=== PATIENT | female | born 1930 | race Caucasian/White ===

== ENCOUNTER → 2016-08-20 | Outpatient (CLI) | payer OTHER | LOC: FIMAGING 15:55 | DX: Z12.31 Encounter for screening mammogram for malignant neoplasm of breast (principal); Z85.3 Personal history of malignant neoplasm of breast | CPT/HCPCS: G0202 ==

== ENCOUNTER 2017-04-07 11:31 | Observation (INO) | payer OTHER ==
--- NOTE | 2017-04-07 11:41 | EDPHY ---
H & P Time Seen by Provider: 04/07/17 11:40 HPI/ROS: CHIEF COMPLAINT: Cough, dyspnea HISTORY OF PRESENT ILLNESS: The patient presents to the ED with worsening cough and dyspnea for the past 24 hours. The patient did notice a sore throat and some nasal congestion over the past several days. The patient denies subjective fever. She did receive a influenza vaccination this year. The patient has a remote history of childhood asthma but no history of pulmonary disease as an adult. She denies any asymmetric calf pain or swelling. She denies pleuritic chest pain. The patient reports moderate dyspnea which is worsened with exertion. REVIEW OF SYSTEMS: A comprehensive 10 point review of systems is otherwise negative aside from elements mentioned in the history of present illness. Source: Patient Exam Limitations: No limitations - Medical/Surgical History PMH: Past medical history: Childhood asthma, hyperlipidemia - Family History Significant Family History: No pertinent family hx - Social History Smoking Status: Never smoked - Physical Exam Exam: General Appearance: Thin female, mild tachypnea Eyes: Pupils equal and round no pallor or injection ENT, Mouth: Mild pharyngeal erythema Respiratory: Diffuse expiratory wheezing, mild tachypnea, decreased breath sounds bilaterally Cardiovascular: Regular rate and rhythm Gastrointestinal: Abdomen is soft and nontender, no masses, bowel sounds normal Neurological: A&O, normal motor function, normal sensory exam, normal cranial nerves Skin: Warm and dry, no rashes Musculoskeletal: Neck is supple nontender Extremities: symmetrical, full range of motion, no edema Constitutional: Initial Vital Signs Temperature (C) 37 C 04/07/17 11:40 Heart Rate 92 04/07/17 11:40 Respiratory Rate 22 H 04/07/17 11:40 Blood Pressure 129/91 H 04/07/17 11:40 O2 Sat (%) 80 L 04/07/17 11:40 O2 Delivery Mode Room Air O2 (L/minute) 5 Allergies/Adverse Reactions: No Known Allergies Allergy (Unverified 04/07/17 11:40) Home Medications: Medication Instructions Recorded Nexium 04/07/17 Medical Decision Making - Diagnostics EKG Interpretation: EKG: Complete interpretation has been separately recorded in the [facility] archive. Summary impression: Sinus rhythm, rate 84, nonspecific T-wave changes noted Imaging Results: Imaging Impressions Chest X-Ray 04/07/17 11:46 Impression: 1. Large retrocardiac hiatal hernia, similar to 10/03/2008. 2. Mild central perihilar bronchial wall thickening, with no new convincing focal infiltrate. If there is further clinical concern regarding the patient's symptoms, contrast- enhanced CT imaging could be considered. ED Course/Re-evaluation: The patient presents to the ED with acute cough and wheezing. The patient was noted to be hypoxemic upon arrival. The patient received supplemental oxygen was placed on a playground monitor. She received a DuoNeb. The patient did correct with 4 L/minute of nasal cannula oxygen. The patient was taken for a chest x-ray which demonstrates no evidence of an obvious pneumonia. I re-evaluated the patient at 1:30 p.m.. She continues to be mildly hypoxemic. An additional 2 albuterol nebulizers have been ordered and 60 mg of oral prednisone was given. The patient's influenza PCR test is negative. I re-evaluated the patient at 2:30 p.m.. Her room air oxygen saturation is still 82%. She is currently correcting on 2 L of nasal cannula O2 per minute. The patient [place] alone [place]. Given her acute hypoxemia I do feel she should be admitted to the hospital for observation this evening. Consultation was made with Dr. Ro from the hospitalist service at 2:30 p.m. who will admit the patient. Differential Diagnosis: Differential diagnosis considered includes fracture, sprain, dislocation - Data Points Laboratory Results: Laboratory Results 04/07/17 11:42 04/07/17 11:42 04/07/17 04/07/17 04/07/17 11:55 11:42 11:42 WBC 10.33 10^3/uL H 10^3/uL (3.80-9.50) RBC 4.82 10^6/uL 10^6/uL (4.18-5.33) Hgb 14.0 g/dL g/dL (12.6-16.3) Hct 41.3 % % (38.0-47.0) MCV 85.7 fL fL (81.5-99.8) MCH 29.0 pg pg (27.9-34.1) MCHC 33.9 g/dL g/dL (32.4-36.7) RDW 15.1 % % (11.5-15.2) Plt Count 188 10^3/uL 10^3/uL (150-400) MPV 11.7 fL fL (8.7-11.7) Neut % (Auto) 84.9 % H % (39.3-74.2) Lymph % (Auto) 7.8 % L % (15.0-45.0) [place] % (Auto) 5.6 % % (4.5-13.0) Eos % (Auto) 1.0 % % (0.6-7.6) Baso % (Auto) 0.5 % % (0.3-1.7) Nucleat RBC Rel Count 0.0 % % (0.0-0.2) Absolute Neuts (auto) 8.77 10^3/uL H 10^3/uL (1.70-6.50) Absolute Lymphs (auto) 0.81 10^3/uL L 10^3/uL (1.00-3.00) Absolute Monos (auto) 0.58 10^3/uL 10^3/uL (0.30-0.80) Absolute Eos (auto) 0.10 10^3/uL 10^3/uL (0.03-0.40) Absolute Basos (auto) 0.05 10^3/uL 10^3/uL (0.02-0.10) Absolute Nucleated RBC 0.00 10^3/uL 10^3/uL (0-0.01) Immature Gran % 0.2 % % (0.0-1.1) Immature Gran # 0.02 10^3/uL 10^3/uL (0.00-0.10) Sodium 139 mEq/L mEq/L (134-144) Potassium 4.3 mEq/L mEq/L (3.5-5.2) Chloride 104 mEq/L mEq/L (97-110) Carbon Dioxide 23 mEq/l mEq/l (22-31) Anion Gap 12 mEq/L mEq/L (8-16) BUN 10 mg/dL mg/dL (7-23) Creatinine 0.7 mg/dL mg/dL (0.6-1.0) Estimated GFR > 60 Glucose 106 mg/dL H mg/dL (70-100) Calcium 9.3 mg/dL mg/dL (8.5-10.4) Nasal Influenza A PCR NEGATIVE FOR FLU A (NEGATIVE) Nasal Influenza B PCR NEGATIVE FOR FLU B (NEGATIVE) Medications Given: Discontinued Medications Albuterol (Proventil Neb) 3 ml IH EDNOW ONE Stop: 04/07/17 13:26 Last Admin: 04/07/17 13:28 Dose: 3 ml Albuterol/Ipratropium (Duoneb) 3 ml IH EDNOW ONE Stop: 04/07/17 11:54 Last Admin: 04/07/17 11:54 Dose: 3 ml Prednisone (Prednisone) 60 mg PO EDNOW ONE Stop: 04/07/17 13:26 Last Admin: 04/07/17 13:50 Dose: 60 mg Departure - Departure Disposition: [facility] Inpatient Acute Clinical Impression: Acute bronchitis, Hypoxemia, Bronchospasm Condition: Fair Referrals: Patient,NotPresent [Unknown] - As per Instructions
[2017-04-07] MEDS ORDERED: IPRATROPIUM/ALBUTEROL 3 ML DEYVIAL ONE (11:44)
[2017-04-07] MEDS ORDERED: IPRATROPIUM/ALBUTEROL 3 ML DEYVIAL IH ONE (11:53)
--- NOTE | 2017-04-07 11:53 | CPEKG ---
Heart Rate: 84 RR Interval: 714 P-R Interval: 192 QRSD Interval: 74 QT Interval: 380 QTC Interval: 450 P Gladys: 57 QRS Gladys: -40 T Wave Gladys: 45 EKG Severity - ABNORMAL ECG - EKG Impression: SINUS RHYTHM Electronically Signed By: Fawad Arciniega 07-Apr-2017 12:34:06
[2017-04-07 12:02] LABS: % IMMATURE GRANULYOCYTES 0.2 % (0.0-1.1); ABSOLUTE IMMATURE GRANULOCYTES 0.02 10^3/uL (0.00-0.10); ADD DIFF? NO; ADD MORPH? NO; ADD SCAN? NO; ATYPICAL LYMPHOCYTE FLAG 0 (0-99); FRAGMENT RBC FLAG 0 (0-99); HEMATOCRIT 41.3 % (38.0-47.0); LEFT SHIFT FLG 0 (0-99); LIPEMIA HEMOLYSIS FLAG 90 (0-99); MEAN CELL HEMOGLOBIN CONCENTR. 33.9 g/dL (32.4-36.7); MEAN CELL VOLUME 85.7 fL (81.5-99.8); MEAN PLATELET VOLUME 11.7 fL (8.7-11.7); PLATELET CLUMPS FLAG 0 (0-99); PLATELET COUNT 188 10^3/uL (150-400); RED BLOOD CELL COUNT 4.82 10^6/uL (4.18-5.33); RED CELL DISTRIBUTION WIDTH 15.1 % (11.5-15.2)
[2017-04-07 12:10] LABS: ANION GAP 12 mEq/L (8-16); CALCIUM 9.3 mg/dL (8.5-10.4); CARBON DIOXIDE 23 mEq/l (22-31); CHLORIDE 104 mEq/L (97-110); CREATININE 0.7 mg/dL (0.6-1.0); GLOMERULAR FILTRATION RATE > 60; GLUCOSE 106 mg/dL (70-100); POTASSIUM 4.3 mEq/L (3.5-5.2); SODIUM 139 mEq/L (134-144)
[2017-04-07] MEDS ORDERED: predniSONE 20 MG TAB PO ONE (13:25)
[2017-04-07] MEDS ORDERED: ALBUTEROL 3 ML DEYVIAL ONE (13:25)
[2017-04-07] MEDS ORDERED: ALBUTEROL 3 ML DEYVIAL IH ONE (13:25)
[2017-04-07] MEDS ORDERED: PANTOPRAZOLE SODIUM 40 MG TAB PO ONE (15:09)
[2017-04-07] MEDS ORDERED: ACETAMINOPHEN 325 MG TAB PO PRN (15:09)
[2017-04-07] MEDS ORDERED: ONDANSETRON 4 MG/2 ML VIAL IVP PRN (15:09)
[2017-04-07] MEDS: IPRATROPIUM/ALBUTEROL 3 ML DEYVIAL IH SCH (16:34)
--- NOTE | 2017-04-07 19:31 | GHP ---
[f rep st] HISTORY AND PHYSICAL DATE OF ADMISSION: 04/07/2017 CHIEF COMPLAINT: Shortness of breath. HISTORY: The patient is an 87-year-old female, who presents with shortness of breath for the last 2 days. She has a new productive cough which started after she caught a cold from her son on . She lives at [address] in [facility]. She was doing well through Thursday night when sh kkie participated in the [employer]. Yesterday she started wheezing. Her cough became more prod uctive. She has a sore throat and nasal congestion. She got so short of breath today that she gomez d 911. PAST MEDICAL HISTORY: 1. Asthma. 2. Hyperlipidemia. MEDICATIONS: Please see computer record for full detailed list. ALLERGIES: No known drug allergies. SOCIAL HISTORY: No smoking. She drinks alcohol socially once a month. She lives at [address] in [facility]. She lives alone. Her 17 years ago. She moved here from [place] to be kellie ser to her grandchildren. REVIEW OF SYSTEMS: Complete review of systems obtained. Review of systems negative regarding consti tutional, HEENT, GI, pulmonary, cardiovascular, , hematology, skin, musculoskeletal, endocrine, psy ch, except for positives as in HPI. FAMILY HISTORY: Reviewed, noncontributory to presenting complaint. PHYSICAL EXAMINATION: GENERAL: Well-developed, well-nourished female, in no acute distress. VITAL SIGNS: Temperature 37.0, pulse 94, blood pressure 129/91, saturating 80% on room air. EYES: Normal conjunctivae. Pupils react to light. ENT: Normal ears and nose. Hearing intact. Normal teeth. Oropharynx moist. NECK: Trachea midline. No thyromegaly. CHEST: Normal respiratory effort. Lung s have bilateral wheezing throughout. CARDIOVASCULAR: Regular rate and rhythm. No murmur. No extr emity edema. ABDOMEN: Soft, nontender. No hepatosplenomegaly. SKIN: Warm, dry, intact without ra sh. MUSCULOSKELETAL: No cyanosis or clubbing. Strength 5/5 upper and lower extremities. NEUROLOGI C: Cranial nerves intact. Normal sensation to light touch. PSYCHIATRIC: Alert and oriented x3. N ormal affect. Normal judgment. Normal memory. LABORATORY DATA: White count 10.33, hematocrit 41.3, platelets 188. Sodium 139, potassium 4.3, chlo ride 104, bicarb 23, BUN 10, creatinine 0.7, glucose 106. Influenza is negative. Rhinovirus positiv e on respiratory PCR. EKG viewed by me. My personal interpretation is normal sinus rhythm. No ST o r T-wave changes. Chest x-ray is negative. ASSESSMENT/PLAN: 1. Acute asthma exacerbation secondary to viral bronchitis. Will treat with steroid and scheduled n ebulizers. Will check a procalcitonin. However, with her positive respiratory PCR, I think it is cl early viral and will hold on prescribing any antibiotics. 2. Acute respiratory failure as evidenced by respiratory rate of 24 and 80% on room air. She is now stable on O2. 3. Hyperlipidemia. Continue her statin drug. CODE STATUS: Full. ADMISSION STATUS: I am going to admit to observation and depending on clinical course and how rapidl y she improves will determine length of stay that will be needed. DVT PROPHYLAXIS: She is high risk. Will place her on subcu Lovenox. /[id number]/MODL
[2017-04-07] MEDS ORDERED: ATORVASTATIN CALCIUM 40 MG TAB PO SCH (21:00)
[2017-04-08] MEDS: IPRATROPIUM/ALBUTEROL 3 ML DEYVIAL IH SCH ×3 (00:10→11:24)
[2017-04-08 05:49] LABS: % IMMATURE GRANULYOCYTES 0.4 % (0.0-1.1); ABSOLUTE IMMATURE GRANULOCYTES 0.03 10^3/uL (0.00-0.10); ADD DIFF? NO; ADD MORPH? NO; ADD SCAN? NO; ATYPICAL LYMPHOCYTE FLAG 0 (0-99); FRAGMENT RBC FLAG 0 (0-99); HEMOGLOBIN 12.6 g/dL (12.6-16.3); LEFT SHIFT FLG 0 (0-99); LIPEMIA HEMOLYSIS FLAG 80 (0-99); MEAN CELL HEMOGLOBIN 28.2 pg (27.9-34.1); MEAN CELL HEMOGLOBIN CONCENTR. 33.2 g/dL (32.4-36.7); PLATELET CLUMPS FLAG 10 (0-99); PLATELET COUNT 174 10^3/uL (150-400); RED BLOOD CELL COUNT 4.47 10^6/uL (4.18-5.33); RED CELL DISTRIBUTION WIDTH 15.2 % (11.5-15.2)
[2017-04-08] MEDS ORDERED: predniSONE 20 MG TAB PO SCH (09:00)
[2017-04-08] MEDS ORDERED: ENOXAPARIN 40 MG/0.4 ML SYR SC SCH (09:00)
[2017-04-08] MEDS ORDERED: PANTOPRAZOLE SODIUM 40 MG TAB PO SCH (09:00)
--- NOTE | 2017-04-08 09:47 | PDHOMEO2F ---
Home Oxygen Face to Face Home Orders: I certify that a physician or a nurse practitioner or physician's retail assistant has had a [id number] encounter with this patient on the date of this order due to the diagnosis listed, which relates to the primary reason the patient requires home oxygen. Alternative treatments have been tried, or considered, and deemed ineffective. It is anticipated that supplemental oxygen will result in improvement with treatment. Home oxygen qualifying diagnosis: asthma SpO2 on room air (%): 85 Frequency of home oxygen needed: continuous Home oxygen liters per minute: 2L Home oxygen delivery device: nasal cannula Concentrator: Yes E-tanks for mobility and back up: Yes If ordering portable O2, is the patient mobile in the home?: Yes I certify that, based on these findings, the home oxygen is medically necessary for this patient for the following length of time. Length of time home oxygen needed: 1 month
--- NOTE | 2017-04-08 10:00 | ASMTCMCOM ---
CM Note CM Note Notes: Pt admitted OBS and will DC today on O2 but has no other DC needs. Date Signed: 04/08/2017 10:00 AM Electronically Signed By:Toshia Chavez LCSW
--- NOTE | 2017-04-08 10:25 | PDIAF ---
- Diagnosis Diagnosis: asthma exacerbation Code Status: Full Code - Medication Management Discharge Medications: Medications to Continue on Transfer Atorvastatin Calcium [Lipitor 40 mg (*)] 40 mg PO HS 04/07/17 [Last Taken ] Esomeprazole Magnesium [Nexium 24Hr] 20 mg PO DAILY 04/07/17 [Last Taken ] Albuterol [Proventil] 17 gm IH Q6 #1 aerosol 04/08/17 [Last Taken Unknown] guaiFENesin [Mucinex] 1,200 mg PO BID #20 tab.er.12h 04/08/17 [Last Taken Unknown] predniSONE 40 mg PO DAILY #8 tablet 04/08/17 [Last Taken Unknown] Discharge Medications: Refer to the Discharge Home Medication list for PRN reason. - Orders Services needed: Home [facility] Face to Face: I certify that this patient was under my care and that I had the required xgcr-pz-[id number] encounter meeting the encounter requirements on the discharge day. My findings support the fact that the patient is homebound as defined in Home Care Face to Face Continued: CMS Chapter 7 Medicare Benefits Manual 30.1.1 , The condition of the patient is such that there exists a normal inability to leave home and consequently, leaving home would require a considerable and taxing effort. Isolation Type: Airborne Isolation Diet Recommendation: no restrictions on diet Diet Texture: Regular Texture Diet - Follow Up Care Current Providers and Referrals: Patient,NotPresent [Unknown] - As per Instructions
[2017-04-08 11:47] VITALS: O2SAT 95
[2017-04-08 12:00] VITALS: BP 135/79; PULSE 92; RESP 18; TEMP 97.7
--- NOTE | 2017-04-08 12:40 | PDHOMEO2F ---
Home Oxygen Face to Face Home Orders: I certify that a physician or a nurse practitioner or physician's ex assistant/program director has had a [id number]-[id number] encounter with this patient on the date of this order due to the diagnosis listed, which relates to the primary reason the patient requires home oxygen. Alternative treatments have been tried, or considered, and deemed ineffective. It is anticipated that supplemental oxygen will result in improvement with treatment. Home oxygen qualifying diagnosis: asthma SpO2 on room air (%): 82 Frequency of home oxygen needed: continuous Home oxygen liters per minute: 3 Home oxygen delivery device: nasal cannula Concentrator: Yes E-tanks for mobility and back up: Yes If ordering portable O2, is the patient mobile in the home?: Yes I certify that, based on these findings, the home oxygen is medically necessary for this patient for the following length of time. Length of time home oxygen needed: 1 month
--- NOTE | 2017-04-08 14:00 | GDS ---
[f rep st] DISCHARGE SUMMARY DISCHARGE DIAGNOSES: 1. Asthma exacerbation due to rhinovirus. 2. Upper respiratory infection. HOSPITAL COURSE AND STAY BY PROBLEM: Asthma exacerbation: Patient presented to the hospital with wh eezing. She was started on breathing treatments and prednisone. On hospital day #1, she is improving . She denies any fever, and her shortness of breath is improved. She is, however, still requiring s upplemental oxygen which she will be discharged home with. PHYSICAL EXAMINATION: VITAL SIGNS: On day of discharge, blood pressure 135/79, pulse of 92, respira tory rate 18, O2 saturation 95% on 3 L but desaturations into the mid 80s on room air. LUNGS: Clear , without wheezes or rales. ABDOMEN: Soft. EXTREMITIES: No edema. PERTINENT LABS AND STUDIES DONE: This hospital stay, chest x-ray done 04/07/2017, was negative for p neumonia. Did show some mild central perihilar bronchial wall thickening. Respiratory panel PCR was positive for rhinovirus/enterovirus. DISCHARGE MEDICATIONS: Please refer to discharge medication reconciliation in [facility] for details. Below is a preliminary list. New medications on hospital discharge: Prednisone 40 mg daily to complete 5 days, Mucinex 1200 mg p. o. b.i.d., albuterol unit dose inhaler q4-6 hours p.r.n. wheezing. DISCHARGE INSTRUCTIONS: The patient will be discharged home with supplemental oxygen. She should se ek medical attention if her respiratory status worsens. /[id number]/MODL
--- NOTE | 2017-04-08 17:22 | ASDISCHSUM ---
Discharge Information Plan Status:Home with Home Health Medically Cleared to Leave: Discharge Date:04/08/2017 05:00 PM CM D/C Disposition:Home Health Service ADT D/C Disposition:[id number] Projected Discharge Date:04/08/2017 11:00 AM Transportation at D/C:Friend Discharge Delay Reason: Follow-Up Date:04/08/2017 11:00 AM Discharge Slot: Final Diagnosis: Placement Information Referral Type:*Home Health Care Services Referral ID:[id number] Provider Name:[facility] Address 1:[address] [facility] Phone Number: Address 2: Fax Number: City:[place] Selection Factors: State:[place] Patient Contact Information Contact Name:LAVINIA Relationship:Alisson Address: Work Phone: City: [facility] Phone: [facility] Code: Email: Financial Information Financial Class:Medicare Advantage Plans Primary Plan Desc:[facility] [employer] Primary Plan Number:[id number] Secondary Plan Desc: Secondary Plan Number: Assessment Information [facility] CM Progress Note CM Note CM Note Notes: Pt admitted OBS and will DC today on O2 but has no other DC needs. Date Signed: 04/08/2017 10:00 AM Electronically Signed By:Toshia Chavez LCSW Case Management Discharge Plan Note Case Management Discharge Discharge Order Complete? Answers: Yes Patient to Obtain Answers: Independently Medications Transportation Arranged Answers: Family/Friends Faxed Final Orders Answers: Yes Family Notified Answers: No Discharge Comments Notes: RN felt pt could benefit from HC RN at DC. Pt lives alone and is now requiring O2. Met with pt who is in agreement. Pt also has neighbors to help. [place] covers pt's location. Faxed referral and final orders. Date Signed: 04/08/2017 11:52 AM Electronically Signed By:Toshia Chavez LCSW Intervention Information
== END 2017-04-08 17:00 | disposition home health service (06) ==
LOC: EDUNIT# → F1N 16:04
PROVIDERS: ADMIT Internal Medicine; ATTEND Family Medicine
DX: J45.901 Unspecified asthma with (acute) exacerbation (principal); J20.6 Acute bronchitis due to rhinovirus; J06.9 Acute upper respiratory infection, unspecified; K44.9 Diaphragmatic hernia without obstruction or gangrene; E78.5 Hyperlipidemia, unspecified; Z85.3 Personal history of malignant neoplasm of breast
CPT/HCPCS: 71020; 93005; 97161; 97165; 99285; G0378; G8978; G8979; G8980; G8987; G8988; G8989; J1650

== ENCOUNTER → 2017-10-08 | Outpatient (CLI) | payer OTHER | LOC: FIMAGING 10:28 | PROVIDERS: ATTEND Family Medicine | DX: Z12.31 Encounter for screening mammogram for malignant neoplasm of breast (principal); Z85.3 Personal history of malignant neoplasm of breast ==